=== PATIENT | female | born 1965 | race Caucasian/White ===

== ENCOUNTER 2021-05-17 09:39 | Outpatient (CLI) | payer MEDICAID ==
[2021-05-17 14:23] LABS: BASOPHILS % (AUTO) 0.9 %; EOSINOPHILS # (AUTO) 0.1 10^3/uL (0.0-0.7); EOSINOPHILS % (AUTO) 1.8 %; HGB - HEMOGLOBIN 13.3 g/dL (12.0-16.0); MEAN CORPUSCULAR HEMOGLOBIN 31.4 pg (27.0-31.0); MEAN CORPUSCULAR HGB CONC 30.2 g/dL (32.0-36.0); MEAN PLATELET VOLUME 10.5 fL (7.9-10.8); MONOCYTES # (AUTO) 0.3 10^3/uL (0.0-1.0); MONOCYTES % (AUTO) 7.2 %; NEUTROPHILS % (AUTO) 44.9 %; PLT - PLATELET COUNT 172 10^3/uL (130-450); RED BLOOD COUNT 4.23 10^6/uL (4.20-5.40); RED CELL DISTRIBUTION WIDTH 13.7 % (12.0-15.0); WHITE BLOOD COUNT 4.5 x10^3/uL (4.8-10.8)
[2021-05-17 14:43] LABS: THYROID STIMULATING HORMONE 5.41 uIU/mL (0.34-5.60)
[2021-05-17 14:47] LABS: ALBUMIN 4.3 g/dL (3.2-5.5); ALBUMIN/GLOBULIN RATIO 1.5 (1.0-2.2); ALKALINE PHOSPHATASE 69 IU/L (42-121); ALT ALANINE AMINOTRANSFERASE 34 IU/L (10-60); AST ASPARTATE AMINOTRANSFERASE 50 IU/L (10-42); BILIRUBIN,TOTAL 0.7 mg/dL (0.2-1.0); BUN - BLOOD UREA NITROGEN 16 mg/dL (6-20); CALCIUM 10.4 mg/dL (8.5-10.3); CARBON DIOXIDE - CO2 29 mmol/L (21-32); CHLORIDE 108 mmol/L (101-111); CHOL/HDL RATIO 3.3 (<4.4); CHOLESTEROL 307 mg/dL; CREATININE 0.7 mg/dL (0.4-1.0); GFR - MDRD 86 (>89); GLUCOSE 95 mg/dL (70-100); HDL CHOLESTEROL 94 mg/dL; LDL CHOLESTEROL,CALCULATED 188 mg/dL; POTASSIUM 4.6 mmol/L (3.5-5.0); SODIUM 147 mmol/L (135-145); TOTAL PROTEIN 7.2 g/dL (6.7-8.2); TRIGLYCERIDES 126 mg/dL; VLDL CHOLESTEROL 25 mg/dL
== END 2021-05-17 09:40 | disposition home or self-care (01) ==
LOC: LAB.S 09:39
PROVIDERS: ATTEND Registered Nurse
DX: D83.9 Common variable immunodeficiency, unspecified (principal); G71.11 Myotonic muscular dystrophy
CPT/HCPCS: 36415; 80053; 80061; 83721; 84443; 85025

== ENCOUNTER 2021-08-09 14:58 | Outpatient (CLI) | payer MEDICAID ==
--- NOTE | 2021-08-17 12:30 | Mammography Report ---
BILATERAL DIGITAL SCREENING MAMMOGRAM 3D/2D WITH EXAGGERATED CC: 08/09/2021 CLINICAL: Routine screening. Additional films were requested but not obtained. The tissue of both breasts is heterogeneously dens e. This may lower the sensitivity of mammography. There is an oval mass in the right breast at 12 o'clock middle depth. There is an oval mass in the left breast at 3 o'clock anterior depth. No other significant masses or calcifications are seen in either breast. IMPRESSION: INCOMPLETE: NEED PRIOR STUDIES FOR COMPARISON The oval mass in the right breast at 12 o'clock middle depth is indeterminate. Additional views with possible ultrasound are recommended. The oval mass in the left breast at 3 o'clock anterior depth is indeterminate. Additional views with possible ultrasound are recommended. This exam was interpreted at Station ID: [id number]. NOTE: For mammograms, a report in lay terms will be sent to the patient. Approximately 15% of breast malignancies will not be visualized mammographically. In the management of a palpable breast mass, a negative mammogram must not discourage biopsy of a clinically suspicious lesion. Electronically Signed By: Chandan ray/felicity:08/17/2021 08:50:16 ACR BI-RADS Category 0 Need prior studies for comparison 3340F PARENCHYMAL PATTERN: (D) - The breast(s) demonstrate(s) heterogeneously dense fibroglandular chuckie connell. BI-RADS CATEGORY: (0) - 0 Mammo and [place] [id number] Immediate follow-up LATERALITY: (B)
== END 2021-08-09 14:59 | disposition home or self-care (01) ==
LOC: DI.S 14:58
PROVIDERS: ATTEND Registered Nurse
DX: Z12.31 Encounter for screening mammogram for malignant neoplasm of breast (principal); R92.8 Other abnormal and inconclusive findings on diagnostic imaging of breast

== ENCOUNTER 2021-10-11 10:05 | Outpatient (CLI) | payer MEDICAID ==
--- NOTE | 2021-10-12 16:05 | Ultrasound Report ---
LIMITED ULTRASOUND OF LEFT BREAST AND AXILLA: 10/11/2021 CLINICAL: Patient returns today to evaluate a focal asymmetry in the left breast. Comparison is made to exams dated: 08/09/2021 mammogram - [facility], [facility], and 05/10/2016 ultrasound - [facility]. Color flow and real-time ultrasound of the left breast 3 o'clock, retroareolar, and axilla regions we re performed. Ibarra scale images of the real-time examination were reviewed. There is a stable benign 2.1 cm x 1.8 cm x 1 cm oval mass with a microlobulated margin in the left br east at 3 o'clock anterior depth 1 cm from the nipple. This oval mass is hypoechoic with a well-defi spencer boundary. This correlates with mammography findings. Color flow imaging demonstrates that there is an adjacent vascularity. Similar appearance to the mass seen in 2012 which measured 2.5 cm x 1.9 cm x 1 cm. No significant abnormalities were seen sonographically in the left axilla. IMPRESSION: BENIGN There is no sonographic evidence of malignancy. Stable 2.1 cm oval mass in the left breast is most consistent with a fibroadenoma and is benign. A 1 year screening mammogram is recommended. Exam findings were discussed with the patient by Dr. Estrada. Patient is advised to monitor for signi ficant change. Clinical follow-up as needed. Prior imaging became available shortly after the exam. Biopsy is not needed for this mass which demon strates long-term stability. This exam was interpreted at Station ID: [id number]. Electronically Signed By: Neri Suarez M.D. slc/:10/11/2021 13:10:55 Ultrasound BI-RADS: 2 Benign BI-RADS CATEGORY: (2) - 2 RECOMMENDATION: (ANNUAL) - Recommend routine annual screening mammography. [id number] 1 year screening LATERALITY: (B)
--- NOTE | 2021-10-12 16:05 | Ultrasound Report ---
LIMITED ULTRASOUND OF RIGHT BREAST: 10/11/2021 CLINICAL: Patient returns today to evaluate a focal asymmetry in the right breast. Comparison is made to exams dated: 08/09/2021 mammogram - [facility], [facility], and 05/14/2013 ultrasound - [facility]. Color flow and real-time ultrasound of the right breast 12 o'clock region were performed. Ibarra scale images of the real-time examination were reviewed. There is a stable benign 1.9 cm x 1.5 cm x 0.7 cm oval mass with a circumscribed margin in the right breast at 12 o'clock middle depth 3 cm from the nipple. This correlates as palpated and with mammogr aphy findings. Color flow imaging demonstrates that there is no vascularity present. This mass measu red 1.9 cm x 1.8 cm x 0.8 cm on 05/14/2013 and is unchanged in appearance. IMPRESSION: BENIGN There is no sonographic evidence of malignancy. Stable 1.9 cm oval mass in the right breast is most consistent with a fibroadenoma and is benign. A 1 year screening mammogram is recommended. Exam findings were discussed with the patient by Dr. Estrada. Patient is advised to monitor for signi ficant change. Clinical follow-up as needed. Prior imaging became available shortly after the exam. Biopsy is not needed for this mass which demon strates long-term stability. This exam was interpreted at Station ID: [id number]. Electronically Signed By: Neri Suarez M.D. slc/:10/11/2021 18:00:22 Ultrasound BI-RADS: 2 Benign BI-RADS CATEGORY: (2) - 2 RECOMMENDATION: (ANNUAL) - Recommend routine annual screening mammography. [id number] 1 year screening LATERALITY: (B)
--- NOTE | 2021-10-12 16:05 | Mammography Report ---
BILATERAL DIGITAL DIAGNOSTIC MAMMOGRAM 3D/2D: 10/11/2021 CLINICAL: Patient returns today to evaluate a focal asymmetry in the right breast. Patient returns to day to evaluate a focal asymmetry in the left breast. Mammogram 08/09/2021. More remote imaging not available at this time. The tissue of both breasts is h eterogeneously dense. This may lower the sensitivity of mammography. There is a 1.8 cm oval mass with an obscured and circumscribed margin in the right breast at 12 o'juve ck middle depth. There is a 1.9 cm oval mass with a microlobulated margin in the left breast at 3 o'clock anterior dep th. No other significant masses or calcifications are seen in either breast. IMPRESSION: INCOMPLETE: NEEDS ADDITIONAL IMAGING EVALUATION The 1.8 cm oval mass in the right breast at 12 o'clock middle depth is indeterminate. The 1.9 cm oval mass in the left breast at 3 o'clock anterior depth is indeterminate. A targeted ultrasound is recommended and will immediately follow. This exam was interpreted at Station ID: [id number]. NOTE: For mammograms, a report in lay terms will be sent to the patient. Approximately 15% of breast malignancies will not be visualized mammographically. In the management of a palpable breast mass, a negative mammogram must not discourage biopsy of a clinically suspicious lesion. Electronically Signed By: Neri Suarez M.D. slc/:10/11/2021 13:03:31 ACR BI-RADS Category 0: Incomplete 3340F PARENCHYMAL PATTERN: (D) - The breast(s) demonstrate(s) heterogeneously dense fibroglandular paralona connell. BI-RADS CATEGORY: (0) - 0 Ultrasound [id number] Immediate follow-up LATERALITY: (B)
== END 2021-10-11 10:06 | disposition home or self-care (01) ==
LOC: DI 10:05
PROVIDERS: ATTEND Registered Nurse
DX: R92.8 Other abnormal and inconclusive findings on diagnostic imaging of breast (principal)

== ENCOUNTER 2021-10-29 13:25 | Outpatient (CLI) | payer MEDICAID ==
--- NOTE | 2021-10-29 16:37 | XRAY Report ---
PROCEDURE: Foot 3 View RT INDICATIONS: RIGHT FOOT PAIN TECHNIQUE: 3 views of the foot were acquired. COMPARISON: None FINDINGS: Bones: No fractures or dislocations. No suspicious bony lesions. Soft tissues: No tibiotalar joint effusion. Achilles tendon appears normal. IMPRESSION: Unremarkable without fracture Reviewed by: Abner Campa MD on 10/29/2021 3:35 PM [place] Approved by: Abner Campa MD on 10/29/2021 3:35 PM [place] Station ID: [id number]
== END 2021-10-29 23:59 | disposition home or self-care (01) ==
LOC: DI.S 13:25
PROVIDERS: ATTEND Registered Nurse
DX: S99.921A Unspecified injury of right foot, initial encounter (principal)

== ENCOUNTER 2021-11-18 13:19 | Outpatient (CLI) | payer MEDICAID ==
--- NOTE | 2021-11-18 16:28 | XRAY Report ---
PROCEDURE: Toe(s) RT INDICATIONS: NONDISPLACED FX RIGHT 4TH TOE TECHNIQUE: 5 views of the fourth toe(s) acquired. COMPARISON: Right foot radiographs 10/29/2021. FINDINGS: Bones: Cortical disruption and sclerosis at the fourth digit proximal phalanx distal aspect. No signi ficant displacement. This is consistent with nondisplaced fracture. No suspicious bony lesions. Soft tissues: No suspicious soft tissue densities. IMPRESSION: Fourth digit proximal phalanx distal nondisplaced fracture. Reviewed by: Neri Suarez MD on 11/18/2021 4:26 PM PST Approved by: Neri Suarez MD on 11/18/2021 4:26 PM [facility] Station ID: [id number]
== END 2021-11-18 23:59 | disposition home or self-care (01) ==
LOC: DI.S 13:19
PROVIDERS: ATTEND Physician Assistant
DX: S92.514A Nondisplaced fracture of proximal phalanx of right lesser toe(s), initial encounter for closed fracture (principal)

== ENCOUNTER 2022-10-23 13:00 | Outpatient (CLI) | payer MEDICAID ==
--- NOTE | 2022-10-24 15:36 | Mammography Report ---
BILATERAL DIGITAL SCREENING MAMMOGRAM 3D/2D WITH EXAGGERATED CC: 10/23/2022 CLINICAL: Routine screening. Comparison is made to exams dated: 08/09/2021 mammogram and 10/11/2021 mammogram - [facility]. Both breasts are heterogeneously dense, which may obscure small masses (category c / 51-75% glandular tissue). No significant masses, calcifications, or other findings are seen in either breast. There has been no significant interval change. IMPRESSION: NEGATIVE There is no mammographic evidence of malignancy. A 1 year screening mammogram is recommended. Based on the Tyrer Cuzick model (a risk assessment model) the patients lifetime risk is 8.6% and her 10 year risk is 3.3%. According to the ACR, ACS, and NCCN guidelines, an annual breast MRI exam aníbal g with mammogram is recommended if the patients lifetime risk is 20% or greater. This exam was interpreted at Station ID: [id number]. NOTE: For mammograms, a report in lay terms will be sent to the patient. Approximately 15% of breast malignancies will not be visualized mammographically. In the management of a palpable breast mass, a negative mammogram must not discourage biopsy of a clinically suspicious lesion. Electronically Signed By: Joseph Candelaria M.D. aty/doerad:10/23/2022 17:17:25 ACR BI-RADS Category 1: Negative 3341F PARENCHYMAL PATTERN: (D) - The breast(s) demonstrate(s) heterogeneously dense fibroglandular chuckie connell. BI-RADS CATEGORY: (1) - 1 RECOMMENDATION: (ANNUAL) - Recommend routine annual screening mammography. [id number] 1 year screening LATERALITY: (B)
== END 2022-10-23 13:01 | disposition home or self-care (01) ==
LOC: DI.S 13:00
PROVIDERS: ATTEND Registered Nurse
DX: Z12.31 Encounter for screening mammogram for malignant neoplasm of breast (principal)

== ENCOUNTER 2023-01-08 14:40 | Outpatient (CLI) | payer MEDICAID ==
--- NOTE | 2023-01-08 16:12 | Ultrasound Report ---
PROCEDURE: Pelvic w/Transvaginal INDICATIONS: HIST OF PELVIC PAIN TECHNIQUE: Real-time scanning was performed of the pelvic organs, with image documentation. Additional endovagi nal scanning was necessary due to incomplete visualization of the adnexal and endometrial structures by transabdominal scanning. COMPARISON: None. FINDINGS: Uterus: Uterus is anteverted and normal in size at 5.7 x 3.4 x 5.7 cm. The myometrium is homogeneou s. The endometrium measures 2-3 mm in combined thickness. There is an intramural fibroid in the mid uterine segment, with a some mucosal interface. This measures 4.8 x 4.4 x 4.4 cm. Ovaries: The right ovary measures 2.4 x 1.9 x 1.6 cm, with a calculated ovarian volume of 4 cc. The left ovary measures 1.6 x 1.4 x 1.4 cm, with a calculated ovarian volume of 1.6 cc. The ovaries hav e a normal sonographic appearance. Less than 12 follicles can be seen in each ovary. No adnexal mas ses are seen. Other: No pathologic free abdominal or pelvic fluid. IMPRESSION: Intramural fibroid with submucosal interface, measuring 4.8 cm. Reviewed by: Adrien Garcia on 01/08/2023 4:11 PM PDT Approved by: Adrien Garcia on 01/08/2023 4:11 PM PDT Station ID: [id number]
== END 2023-01-08 14:41 | disposition home or self-care (01) ==
LOC: DI 14:40
PROVIDERS: ATTEND Nurse Practitioner
DX: D25.1 Intramural leiomyoma of uterus (principal)

== ENCOUNTER 2023-03-16 07:00 | Outpatient (CLI) | payer MEDICAID ==
--- NOTE | 2023-03-16 15:52 | XRAY Report ---
PROCEDURE: Ankle 3 View LT INDICATIONS: LEFT ANKLE CONTUSION TECHNIQUE: 3 views of the ankle were acquired. COMPARISON: None. FINDINGS: Bones: No fractures or dislocations. Ankle mortise is normally aligned. No suspicious bony lesions . Soft tissues: No tibiotalar joint effusion. Achilles tendon appears normal. IMPRESSION: No acute bony abnormality. Reviewed by: Kaden Chery MD on 03/16/2023 3:51 PM PDT Approved by: Kaden Chery MD on 03/16/2023 3:51 PM PDT Station ID: [id number]
--- NOTE | 2023-03-16 15:53 | XRAY Report ---
PROCEDURE: Pelvis 1 View INDICATIONS: LEFT HIP CONTUSION TECHNIQUE: 1 view(s) of the pelvis acquired. COMPARISON: None. FINDINGS: Bones: No fractures or dislocations. No suspicious bony lesions. Soft tissues: Visualized bowel gas pattern is normal. No suspicious soft tissue calcifications. IMPRESSION: No acute bony abnormality. Reviewed by: Kaden Chery MD on 03/16/2023 3:52 PM PDT Approved by: Kaden Chery MD on 03/16/2023 3:52 PM PDT Station ID: [id number]
--- NOTE | 2023-03-16 15:53 | XRAY Report ---
PROCEDURE: Shoulder 3 View LT INDICATIONS: LEFT SHOULDER CONTUSION TECHNIQUE: 3 views of the shoulder were acquired. COMPARISON: None. FINDINGS: Bones: No fractures or dislocations. No suspicious bony lesions. Visualized ribs appear intact. Soft tissues: No suspicious soft tissue calcifications. IMPRESSION: No acute bony abnormality. Reviewed by: Kaden Chery MD on 03/16/2023 3:51 PM PDT Approved by: Kaden Chery MD on 03/16/2023 3:51 PM PDT Station ID: [id number]
--- NOTE | 2023-03-16 15:54 | XRAY Report ---
PROCEDURE: Cervical Spine 2 View INDICATIONS: NECK STRAIN TECHNIQUE: 3 view(s) of the cervical spine were acquired. COMPARISON: None. FINDINGS: Bones: There is straightening of normal cervical lordosis. Degenerative endplate changes, loss of dis c height and bilateral facet hypertrophic changes throughout mid to lower cervical spine is seen. No fractures or dislocations to the T1 level. The lateral masses of C1 appear intact on the odontoid vi ew. No suspicious bony lesions. Soft tissues: No prevertebral soft tissue swelling. IMPRESSION: Degenerative disc disease in mid to lower cervical spine. No acute fracture or dislocatio n. Reviewed by: Kaden Chery MD on 03/16/2023 3:52 PM PDT Approved by: Kaden Chery MD on 03/16/2023 3:52 PM PDT Station ID: [id number]
== END 2023-03-16 23:59 | disposition home or self-care (01) ==
LOC: DI.S 07:00
PROVIDERS: ATTEND Emergency Medicine
DX: S40.012A Contusion of left shoulder, initial encounter (principal); S70.02XA Contusion of left hip, initial encounter; S90.02XA Contusion of left ankle, initial encounter; S16.1XXA Strain of muscle, fascia and tendon at neck level, initial encounter; M50.320 Other cervical disc degeneration, mid-cervical region, unspecified level

== ENCOUNTER 2023-04-21 17:51 | Outpatient (CLI) | payer MEDICAID | END 2023-04-21 23:59 | disposition short-term general hospital (02) | LOC: EMS 17:51 | DX: S00.83XA Contusion of other part of head, initial encounter (principal); S00.11XA Contusion of right eyelid and periocular area, initial encounter; R51.9 Headache, unspecified; H53.8 Other visual disturbances; W10.8XXA Fall (on) (from) other stairs and steps, initial encounter; Y92.008 Other place in unspecified non-institutional (private) residence as the place of occurrence of the external cause | CPT/HCPCS: A0425; A0427; A0999 ==

== ENCOUNTER 2023-12-06 14:16 | Outpatient (CLI) | payer MEDICAID ==
--- NOTE | 2023-12-06 17:25 | XRAY Report ---
PROCEDURE: Shoulder 3 View BILAT INDICATIONS: BILAT SHOULDER PAIN TECHNIQUE: 3 views of the shoulder were acquired. COMPARISON: Left shoulder radiographs 03/16/2023. FINDINGS: Bones: No fractures or dislocations. Mild bilateral degenerative changes. No suspicious bony lesion s. Visualized ribs appear intact. Soft tissues: No suspicious soft tissue calcifications. The visualized lungs are within normal limi ts. IMPRESSION: Mild bilateral shoulder DJD. Reviewed by: Neri Suarez MD on 12/06/2023 5:24 PM PST Approved by: Neri Suarez MD on 12/06/2023 5:24 PM PST Station ID: [id number]
== END 2023-12-06 23:59 | disposition home or self-care (01) ==
LOC: DI.WOS 14:16
PROVIDERS: ATTEND Physician Assistant Surgical
DX: M19.012 Primary osteoarthritis, left shoulder (principal); M19.011 Primary osteoarthritis, right shoulder

== ENCOUNTER 2023-12-10 07:22 | Outpatient (CLI) | payer MEDICAID | END 2023-12-10 07:23 | disposition home or self-care (01) | LOC: LAB 07:22 | DX: D83.9 Common variable immunodeficiency, unspecified (principal) | CPT/HCPCS: 36415; 82784 ==